=== PATIENT | male | born 1950 | race Caucasian/White ===

== ENCOUNTER 2020-03-13 06:57 | Outpatient (CLI) | payer MEDICARE ==
--- NOTE | 2020-03-13 07:43 | ULT ---
Renal sonogram with duplex evaluation HISTORY: Acute renal failure. Hypertension. FINDINGS: Right kidney is 10.6 cm length and left 10.9 cm. Each has a normal appearance without mass, stone, or hydronephrosis. Urinary bladder is unremarkable. Good color and spectral Doppler flow within the renal arteries. No abnormally elevated peak systolic velocities. Resistive index associated with arcuate arteries of each kidney is 0.7. IMPRESSION : No abnormalities are demonstrated.
== END 2020-03-13 06:58 | disposition home or self-care (01) ==
LOC: BICULT 06:57
PROVIDERS: ATTEND Internal Medicine Nephrology
DX: N17.9 Acute kidney failure, unspecified (principal)
CPT/HCPCS: 76770; 93975